=== PATIENT | male | born 1965 ===

== ENCOUNTER → 2025-01-20 17:48 | Outpatient (REF) | payer OTHER, SELFPAY | LOC: MRI 3T 17:48 | PROVIDERS: ATTENDING PHYSICIAN Urology; FAMILY PHYSICIAN Family Medicine Sports Medicine | DX: R97.20 Elevated prostate specific antigen [PSA] (principal); N40.1 Benign prostatic hyperplasia with lower urinary tract symptoms | CPT/HCPCS: 72197; A9575 ==